=== PATIENT | male | born 1950 | race Caucasian/White ===

== ENCOUNTER 2018-05-17 12:20 | Emergency (ER) | payer SELFPAY | END 2018-05-17 12:39 | disposition left against medical advice (07) | LOC: ER 12:20 | DX: Z53.29 Procedure and treatment not carried out because of patient's decision for other reasons (principal) ==

== ENCOUNTER 2018-06-21 10:43 | Emergency (ER) | payer MEDICARE ==
[2018-06-21] MEDS ORDERED: DILTIAZEM 25MG/5ML VIAL IV ONE (11:17)
--- NOTE | 2018-06-21 11:20 | Emergency Department Record ---
History of Present Illness - General Chief Complaint: Difficulty Breathing Stated Complaint: MARQUITA Time Seen by Provider: 06/21/18 11:04 Source: Patient, Family Mode of Arrival: Ambulatory Limitations: No limitations - History of Present Illness Initial Comments: The patient is here due to LINDQUIST and weakness for at least a week. He has a hx of Afib and states he had a cardioversion at [facility] 2 weeks ago. He is supposed to be taking Xarelto and a Beta Mika but has been off it for at least a week. Due to the persistent weakness, fatigue and LINDQUIST he decided to come to the ER. The patient denies any CP, fever, chills, or cough. MD Complaint: Shortness of breath Onset/Timin -: Week(s) Improves With: Nothing Worsens With: Nothing Known History Of: Other Context: Other Treatments Prior to Arrival: None - Related Data Home Oxygen Therapy: No Allergies Allergy/AdvReac Type Severity Reaction Status Date / Time No Known Drug Allergies Allergy Verified 06/21/18 10:48 Travel Screening - Travel/Exposure Within Last 30 Days Have you traveled within the last 30 days?: No - Travel/Exposure Within Last Year Have you traveled outside the [place] in the last year?: No - Additonal Travel Details Have you been exposed to anyone with a communicable illness?: No - Travel Symptoms Symptom Screening: None Review of Systems Constitutional: Denies: Chills, Fever Eyes: Denies: Eye discharge ENT: Denies: Congestion Respiratory: Reports: Dyspnea. Denies: Cough Cardiovascular: Reports: Arrhythmia, Dyspnea on exertion. Denies: Chest pain Endocrine: Reports: Fatigue Gastrointestinal: Denies: Nausea Genitourinary: Denies: Dysuria Musculoskeletal: Denies: Arthralgia Skin: Denies: Bruising Past Medical History - SOCIAL HISTORY Smoking Status: Current every day smoker Alcohol Use: Occasional Drug Use: None - RESPIRATORY Hx Respiratory Disorders: No - CARDIOVASCULAR Hx Cardio Disorders: No - NEURO Hx Neuro Disorders: No - GI Hx GI Disorders: No - Hx Genitourinary Disorders: No - ENDOCRINE Hx Endocrine Disorders: No - MUSCULOSKELETAL Hx Musculoskeletal Disorders: No - PSYCH Hx Psych Problems: Yes Hx Anxiety: Yes Hx Depression: Yes Comment:: ADHD - HEMATOLOGY/ONCOLOGY Hx Hematology/Oncology Disorders: No Family Medical History Any Significant Family History?: No Physical Exam - General General Appearance: Alert, Oriented x3, Cooperative, No acute distress - Head Head exam: Atraumatic, Normocephalic, Normal inspection - Eye Eye exam: Normal appearance, PERRL - ENT Throat exam: Normal inspection. negative: Tonsillar erythema, Tonsillar exudate - Neck Neck exam: Normal inspection, Full ROM. negative: Tenderness - Respiratory Respiratory exam: Normal lung sounds bilaterally. negative: Respiratory distress - Cardiovascular Cardiovascular Exam: Irregular rhythm. negative: Regular rate, Normal rhythm - GI/Abdominal GI/Abdominal exam: Soft, Normal bowel sounds. negative: Tenderness - Extremities Extremities exam: Normal inspection, Full ROM, Normal capillary refill. negative: Tenderness - Neurological Neurological exam: Alert, Normal gait. negative: Abnormal gait, Motor sensory deficit - Psychiatric Psychiatric exam: Anxious Course Vital Signs 06/21/18 10:59 Temperature 97.3 F L Pulse Rate 120 H Respiratory 18 Rate Blood Pressure 124/88 Pulse Ox 98 - Reevaluation(s) Reevaluation #1: The patient is doing better at this time. I did discuss the need for admission to Cardiology and the patient would like to go to [facility] [place]. His HR is still 120-130 so we will bump his Cardizem. 06/21/18 12:31 Reevaluation #2: The patient is doing a lot better at this time. His HR is now in the 115-120 range. He is presently being transferred. 06/21/18 13:35 Medical Decision Making - Data Complexity MDM Data: EKG Ordered and/or Reviewed - Lab Data Result diagrams: 06/21/18 11:00 06/21/18 11:00 - EKG Data -: EKG Interpreted by Me EKG: Abnormal EKG (Rapid Afib at 160. Neg ischemic changes.) Disposition Disposition: Transfer Clinical Impression: Rapid atrial fibrillation Disposition: Acute Care Hospital Transfer Transfer To: [facility] [place] Reason For Transfer: Cardiology Accepting Physician: Melissa Time Discussed w/Accepting Physician: 12:56 Condition: (2) Stable Forms: Patient Portal Access Time of Disposition: 12:56 Quality - Quality Measures Quality Measures: N/A - Blood Pressure Screening View Details: Yes Does Patient Have Any of the Following: No Blood Pressure Classification: Pre-Hypertensive BP Reading Systolic Measurement: 109 Diastolic Measurement: 89 Screening for High Blood Pressure: < Pre-Hypertensive BP, F/U Documented > [ [id number]] Pre-Hypertensive Follow-up Interventions: Referral to alternative/primary care provider.
[2018-06-21 11:27] LABS: BASO % 1.6 % (0-6); EOS % 4.1 % (0-6); GRAN % 64.1 % (47-80); HEMATOCRIT 39.1 % (42.0-52.0); HEMOGLOBIN 12.8 gm/dl (14.0-18.0); LYMPH % 21.7 % (16-45); MEAN CELL VOLUME 91.8 fl (81-97); MEAN CORPUSCULAR HGB CONC 32.7 g/dl (32-36); MEAN PLATELET VOLUME 9.7 fl (7.4-10.4); MONO % 8.5 % (0-9); PLATELET COUNT 553 K/uL (130-400); RED BLOOD COUNT 4.26 M/uL (4.40-5.70); RED CELL DISTRIBUTION WIDTH 12.7 % (11.5-14.5)
[2018-06-21] MEDS ORDERED: DILTIAZEM HCL 125 MG in 0.9 % SODIUM CHLORIDE 100ML 100 ML IV SCH ×2 (11:30→12:30)
[2018-06-21 11:43] LABS: BLOOD UREA NITROGEN 21 mg/dL (8-23); CREATININE 0.8 mg/dL (0.7-1.2); EST GLOMERULAR FILTRATION RATE > 60 mL/min
[2018-06-21 11:44] LABS: TOTAL PROTEIN 7.9 g/dL (6.6-8.7)
[2018-06-21 11:46] LABS: GLUCOSE,RANDOM 149 mg/dL (74-109)
[2018-06-21 11:49] LABS: ALB/GLOB RATIO 0.9 (1.1-1.8); ALBUMIN 3.8 g/dL (4.0-5.0); ALKALINE PHOSPHATASE 107 U/L (40-129); ALT/SGPT 11 U/L (<41); AST/SGOT 12 U/L (10.0-50.0); CREATINE PHOSPHOKINASE 41 U/L (39-308)
[2018-06-21 11:53] LABS: CKMB 3.4 ng/mL (<6.73)
[2018-06-21 12:01] LABS: THYROID STIMULATING HORMONE 1.81 uIU/mL (0.270-4.20)
[2018-06-21 12:44] LABS: INR 1.2; PARTIAL THROMBOPLASTIN TIME 31.3 SECONDS (24.5-39.1); PROTHROMBIN TIME (PATIENT) 11.6 SECONDS (9.5-12.1)
[2018-06-21] MEDS ORDERED: HEPARIN SODIUM 1000 UNIT/1 ML 10ML VIAL IVP ONE (12:56)
[2018-06-21] MEDS ORDERED: HEPARIN SODIUM/D5W 25,000 UNITS/500 ML BAG IV SCH (13:00)
== END 2018-06-21 13:43 | disposition short-term general hospital (02) ==
LOC: ER 10:43
DX: I48.0 Paroxysmal atrial fibrillation (principal); R06.00 Dyspnea, unspecified; R53.1 Weakness; F17.210 Nicotine dependence, cigarettes, uncomplicated
CPT/HCPCS: 80053; 82550; 82553; 84443; 84484; 85025; 85610; 85730; 93005; 93010; 96365; 96366; 96368; 96375; 99285

== ENCOUNTER 2018-10-10 00:11 | Emergency (ER) | payer MEDICARE ==
--- NOTE | 2018-10-10 00:32 | Emergency Department Record ---
History of Present Illness - General Chief Complaint: Palpitations Stated Complaint: AFIB Time Seen by Provider: 10/10/18 00:12 Source: Patient Mode of Arrival: Ambulatory Limitations: No limitations - History of Present Illness Initial Comments: 68 yo male presents to ED for evaluation of an irregular heart beat, reports recent cardioversion for atrial fibrillation. Patient reports that he noticed an irregular heart beat and feeling more faint than he normally does, symptoms began earlier this evening. Patient does take Xarelto, Amiodarone, Metoprolol, and Digitek for his atrial fibrillation symptoms. Patient denies chest pain or discomfort, denies shortness of breath symptoms. Patient is unsure if he took his medications correctly this evening. MD Complaint: Atrial fibrillation, Irregular heart beat Onset/Timin -: Hour(s) Arrythmia History: Atrial fibrillation, History of electrical cardioversion Associated Symptoms: Denies other symptoms Treatments Prior to Arrival: Amiodarone, Beta-sd - Related Data Home Medications Medication Instructions Recorded Confirmed Last Taken Amiodarone HCl [Pacerone] 200 mg PO DAILY 10/10/18 10/10/18 10/09/18 Digoxin [Digitek] 1 tab PO DAILY 10/10/18 10/10/18 10/09/18 Furosemide [Lasix] 1 tab PO DAILY 10/10/18 10/10/18 10/09/18 Lisinopril [Zestril] 5 mg PO DAILY 10/10/18 10/10/18 10/09/18 Metoprolol Succinate 100 mg PO DAILY 10/10/18 10/10/18 10/09/18 Rivaroxaban [Xarelto] 1 tab PO DAILY 10/10/18 10/10/18 10/09/18 Allergies Allergy/AdvReac Type Severity Reaction Status Date / Time No Known Drug Allergies Allergy Verified 06/21/18 10:48 Travel Screening - Travel/Exposure Within Last 30 Days Have you traveled within the last 30 days?: No - Travel/Exposure Within Last Year Have you traveled outside the [place] in the last year?: No - Additonal Travel Details Have you been exposed to anyone with a communicable illness?: No - Travel Symptoms Symptom Screening: None Review of Systems Constitutional: Denies: Chills, Fever, Malaise, Night sweats Eyes: Denies: Eye discharge, Eye pain ENT: Denies: Congestion, Ear pain, Epistaxis Respiratory: Denies: Cough, Dyspnea Cardiovascular: Reports: Palpitations. Denies: Chest pain, Dyspnea on exertion, Paroxysmal nocturnal dyspnea Endocrine: Denies: Fatigue, Heat or cold intolerance Gastrointestinal: Denies: Abdominal pain, Nausea, Vomiting Genitourinary: Denies: Incontinence, Retention Musculoskeletal: Denies: Arthralgia, Back pain Skin: Denies: Bruising, Change in color Neurological: Denies: Abnormal gait, Confusion, Headache, Numbness, Tingling, Tremors Psychiatric: Denies: Anxiety Hematological/Lymphatic: Reports: Easy bleeding, Easy bruising. Denies: Anemia, Blood Clots Past Medical History - SOCIAL HISTORY Smoking Status: Current every day smoker Alcohol Use: None Drug Use: None - RESPIRATORY Hx Respiratory Disorders: No - CARDIOVASCULAR Hx Cardio Disorders: No Hx Palpitations: Yes (a-fib) - NEURO Hx Neuro Disorders: No - GI Hx GI Disorders: No - Hx Genitourinary Disorders: No - ENDOCRINE Hx Endocrine Disorders: No - MUSCULOSKELETAL Hx Musculoskeletal Disorders: No - PSYCH Hx Psych Problems: Yes Hx Anxiety: Yes Hx Depression: Yes Comment:: ADHD - HEMATOLOGY/ONCOLOGY Hx Hematology/Oncology Disorders: No Family Medical History Any Significant Family History?: No Physical Exam - General General Appearance: Alert, Oriented x3, Cooperative, No acute distress Limitations: No limitations - Head Head exam: Atraumatic, Normocephalic, Normal inspection Head exam detail: negative: Abrasion, Contusion, Soto's sign, General tenderness, Hematoma, Laceration - Eye Eye exam: Normal appearance. negative: Conjunctival injection, Periorbital swelling, Periorbital tenderness, Scleral icterus - ENT Ear exam: negative: Auricular hematoma, Auricular trauma Nasal Exam: negative: Active bleeding, Discharge, Dried blood, Foreign body Mouth exam: negative: Drooling, Laceration, Muffled voice, Tongue elevation - Neck Neck exam: Normal inspection. negative: Meningismus, Tenderness - Respiratory Respiratory exam: Normal lung sounds bilaterally. negative: Respiratory distress, Rhonchi, Stridor, Wheezes - Cardiovascular Cardiovascular Exam: Irregular rhythm, Tachycardia - GI/Abdominal GI/Abdominal exam: Soft. negative: Distended, Rebound, Rigid, Tenderness - Rectal Rectal exam: Deferred - exam: Deferred - Extremities Extremities exam: Normal inspection. negative: Pedal edema, Tenderness - Back Back exam: Denies: CVA tenderness (R), CVA tenderness (L) - Neurological Neurological exam: Alert, Normal gait, Oriented X3 - Psychiatric Psychiatric exam: Normal affect, Normal mood - Skin Skin exam: Normal color. negative: Abrasion Type of lesion: negative: abrasion Course Vital Signs 10/10/18 00:13 Temperature 99.0 F Pulse Rate 116 H Respiratory 17 Rate Blood Pressure 145/93 Pulse Ox 97 - Reevaluation(s) Reevaluation #1: 10/10/18 00:30 EKG: Atrial fibrillation 102 Normal axis, irregular R-R intervals nonspecific ST-T wave changes Reevaluation #2: 10/10/18 00:46 Patient appears to have spontaneously converted on monitor. Awaiting laboratory studies for further disposition. Reevaluation #3: 10/10/18 00:53 Laboratory studies were reviewed and appear grossly unremarkable for an acute process. Patient is maintaining NSR. Patient appears stable for discharge at this time to follow-up with Dr. Feliz later today in the [facility]. Medical Decision Making - Lab Data Result diagrams: 10/10/18 00:20 10/10/18 00:20 Disposition Disposition: Discharge Clinical Impression: Paroxysmal atrial fibrillation, Anticoagulation adequate Disposition: Home, Self-Care Condition: (2) Stable Instructions: A-fib (Atrial Fibrillation) (ED) Additional Instructions: Return to ED if your symptoms worsen or if you have any concerns. Follow-up with Dr. Feliz later today in the [facility] as directed. Referrals: Howard Feliz M.D. [MEDICAL DOCTOR] - [facility] [Provider Group] Forms: Patient Portal Access Time of Disposition: 00:49 Quality - Quality Measures Quality Measures: N/A - Blood Pressure Screening Does Patient Have Any of the Following: Active Dx of HTN Blood Pressure Classification: Hypertensive Reading Systolic Measurement: 145 Diastolic Measurement: 93 Screening for High Blood Pressure: Patient Exclusion, Hx of HTN [G9744]
[2018-10-10 00:35] LABS: EOS % 2.3 % (0-6); GRAN % 60.8 % (47-80); LYMPH % 26.3 % (16-45); MEAN CELL VOLUME 90.9 fl (81-97); MEAN CORPUSCULAR HGB CONC 34.1 g/dl (32-36); MEAN PLATELET VOLUME 10.3 fl (7.4-10.4); MONO % 9.6 % (0-9); PLATELET COUNT 354 K/uL (130-400); RED BLOOD COUNT 4.84 M/uL (4.40-5.70); RED CELL DISTRIBUTION WIDTH 14.8 % (11.5-14.5); WHITE BLOOD COUNT W/O DIFF 11.5 K/uL (4.2-12.2)
[2018-10-10 00:44] LABS: BLOOD UREA NITROGEN 19 mg/dL (8-23); EST GLOMERULAR FILTRATION RATE > 60 mL/min
[2018-10-10 00:45] LABS: TOTAL PROTEIN 8.1 g/dL (6.6-8.7)
[2018-10-10 00:47] LABS: GLUCOSE,RANDOM 110 mg/dL (74-109)
[2018-10-10 00:50] LABS: ALBUMIN 4.1 g/dL (4.0-5.0); ALKALINE PHOSPHATASE 90 U/L (40-129); ALT/SGPT 14 U/L (<41); AST/SGOT 14 U/L (10.0-50.0); DIGOXIN 1.4 ng/mL (0.8-2.0)
== END 2018-10-10 01:02 | disposition home or self-care (01) ==
LOC: ER 00:11
DX: I48.0 Paroxysmal atrial fibrillation (principal); F17.210 Nicotine dependence, cigarettes, uncomplicated; Z79.01 Long term (current) use of anticoagulants
CPT/HCPCS: 80053; 80162; 80320; 84484; 85025; 93005; 93010; 99284